=== PATIENT | male | born 1955 | race Caucasian/White ===

== ENCOUNTER 2017-03-14 07:52 | Outpatient (CLI) | payer BC ==
[~2017-03-14] VITALS: Ht 177.8 cm; Wt 109.1 kg
[2017-03-14] MEDS ORDERED: FLOM5CAP PO (08:06)
[2017-03-14] MEDS ORDERED: CRES20TA PO (08:06)
[2017-03-14] MEDS ORDERED: LOSA100T36 PO (08:06)
[2017-03-14] MEDS ORDERED: METF10004 PO (08:06)
[2017-03-14] MEDS ORDERED: methylPREDNISolone 1,000 MG, VIAL MATE ADAPTER 1 EACH in D5W 250 ML IV ONE (08:15)
[2017-03-14 12:50] LABS: VITAMIN B12 LEVEL 191 PG/ML (247-911)
[2017-03-14 12:51] LABS: FOLATE > 24.0 NG/ML (>5.4)
[2017-03-17 00:09] LABS: Lyme Disease IgG/IgM Antibodie <0.91 ISR (0.00-0.90); Lyme Disease IgM Ab Quantitati <0.80 index (0.00-0.79)
== END 2017-03-14 10:15 | disposition home or self-care (01) ==
LOC: M INFU 07:52
PROVIDERS: ATTEND Psychiatry & Neurology Neurology
DX: H46.9 Unspecified optic neuritis (principal); Z85.820 Personal history of malignant melanoma of skin; Z79.899 Other long term (current) drug therapy; Z87.891 Personal history of nicotine dependence
CPT/HCPCS: 36415; 82607; 82746; 83520; 85652; 86038; 86140; 86431; 86617; 96365; J2930

== ENCOUNTER 2017-03-15 07:13 | Outpatient (CLI) | payer BC ==
[~2017-03-15] VITALS: Ht 177.8 cm; Wt 109.0 kg
[~2017-03-15 07:13] MED LIST: CRES20TA PO; FLOM5CAP PO; LOSA100T36 PO; METF10004 PO
[2017-03-15] MEDS ORDERED: methylPREDNISolone 1,000 MG, VIAL MATE ADAPTER 1 EACH in D5W 250 ML IV ONE (07:15)
== END 2017-03-15 08:50 | disposition home or self-care (01) ==
LOC: M INFU 07:13
PROVIDERS: ATTEND Psychiatry & Neurology Neurology
DX: H46.9 Unspecified optic neuritis (principal); Z85.820 Personal history of malignant melanoma of skin; Z79.899 Other long term (current) drug therapy; Z87.891 Personal history of nicotine dependence
CPT/HCPCS: 96365; J2930

== ENCOUNTER 2017-03-16 07:04 | Outpatient (CLI) | payer BC ==
[2017-03-16] MEDS ORDERED: methylPREDNISolone 1,000 MG, VIAL MATE ADAPTER 1 EACH in D5W 250 ML IV ONE (08:00)
== END 2017-03-16 08:55 | disposition home or self-care (01) ==
LOC: M INFU 07:04
PROVIDERS: ATTEND Psychiatry & Neurology Neurology
DX: H46.9 Unspecified optic neuritis (principal); Z79.84 Long term (current) use of oral hypoglycemic drugs; Z79.899 Other long term (current) drug therapy
CPT/HCPCS: 96365; J2930

== ENCOUNTER → 2017-10-17 | Outpatient (REF) | payer BC ==
[2017-10-17 14:17] LABS: FOLATE 18.6 NG/ML; VITAMIN B12 LEVEL 916 PG/ML
[2017-10-20 00:07] LABS: ANTI-PARIETAL CELL ANTIBODY 87.7 Units (0.0-20.0)
[2017-10-20 00:07] LABS: HOMOCYST(E)INE SERUM 9.3 umol/L (0.0-15.0); Methylmalonic Acid 120 nmol/L (0-378)
== END ==
LOC: M LABNEURO 11:54
DX: E53.8 Deficiency of other specified B group vitamins (principal)
CPT/HCPCS: 82746